=== PATIENT | female | born 1980 | race Caucasian/White ===

== ENCOUNTER 2021-12-11 11:36 | Emergency (ER) | payer BC ==
[2021-12-11 11:56] VITALS: BP 115/95; PULSE 55
== END 2021-12-11 13:30 ==
LOC: JD.ED 11:36
DX: S52.571A Other intraarticular fracture of lower end of right radius, initial encounter for closed fracture (principal); W00.0XXA Fall on same level due to ice and snow, initial encounter
CPT/HCPCS: 29125; 73110-26-RT; 73110-RT; 99283-25